=== PATIENT | female | born 1950 | race Caucasian/White ===

== ENCOUNTER 2025-07-23 16:52 | Inpatient (IN) | payer OTHER, SELFPAY ==
[2025-07-23] VITALS (8 sets, daily range): BP systolic 140–176; BP diastolic 55–77; BMI 28.7; BMI 28.6
--- NOTE | 2025-07-23 15:21 | ED.GENMED ---
History of Present Illness
<Jero Min PA-C - Last Filed: 07/23/25 16:22>
General
Chief Complaint: Fainting/Passed Out
Source: patient
Exam Limitations: none
Time Seen by Provider: 07/23/25 15:08
History of Present Illness
History of Present Illness:
75-year-old female presents via EMS from [facility] after syncopal episode. She states she had breakfast this morning. She was standing up to get lunch started to feel weak and lightheaded. She sat herself down but proceeded to pass out.
She sustained no injuries from passing out. She never been in this hospital before. She has a history of anemia. She does note that starting Friday evening she is been having dark stools. She has been taking ibuprofen daily for headaches. She
also has been taking aspirin intermittently. No other anticoagulants. She denies abdominal pain. With her workup for anemia in the past she has had endoscopies and colonoscopies as well as pill endoscopies without any sign of bleeding. She
denies chest pain. No headache currently. She notes overall she feels fatigued. No other complaints at this time
Phy Exam
<Jero Min PA-C - Last Filed: 07/23/25 16:22>
Physical Exam
Physical Exam:
General: Well-appearing female no acute respiratory distress
HEENT normal cephalic atraumatic
Heart: Regular rate and rhythm
Lungs: Clear no wheeze
Abdomen is soft nontender
Rectal exam: This was performed with female nurse as a technology applications teacher in the room. The stool was dark in color heme positive
Extremities: No cyanosis
Course
<Jero Min PA-C - Last Filed: 07/23/25 16:22>
Orders/Labs/Results
Orders:
Orders
07/23/25 15:15
EKG [Electrocardiogram (*1)] Urgent
Reason for Study: Syncope
07/23/25 15:16
EKG- Treatment ONCE
07/23/25 15:21
Pantoprazole [Protonix IV] 80 mg IV NOW STA
07/23/25 15:34
Type+Screen Urgent
CBC/With Diff [Complete Blood Count/With Diff] Urgent
Comprehensive Metabolic Panel Urgent
PTT Urgent
Prothrombin Time Urgent
07/23/25 15:36
Pantoprazole 80 mg/100 ml Nss [Protonix] 80 mg in 100 ml .ROUTE .STK-MED
07/23/25 15:58
Sterile Water [Sterile Water For Injection] 20 ml .ROUTE .STK-MED
07/23/25 16:13
* Blood Bank Products Urgent
Blood Bank Products: *Packed RBC Leuko(PRBC's)
Quantity: 2
Transfuse Today: Yes
Reason: Anemia
Abnormal Lab Results
07/23/25
15:34
WBC 14.1 H 10^3/uL
(4.8-10.8)
RBC 3.09 L 10^6/uL
(4.20-5.40)
Hgb 6.6 L* g/dL
(12.0-16.0)
Hct 22.6 L %
(37.0-47.0)
MCV 73.1 L fL
(81.0-99.0)
MCH 21.4 L pg
(27.0-31.0)
MCHC 29.2 L g/dL
(33.0-37.0)
RDW 16.0 H %
(11.5-14.5)
MPV 11.3 H fL
(7.4-10.4)
Abs Immat Gran (auto) 0.1 H 10^3/uL
(0-0.05)
Absolute Neuts (auto) 10.7 H 10^3/uL
(1.4-6.5)
Absolute Monos (auto) 0.8 H 10^3/uL
(0.1-0.6)
Immature Gran % 0.9 H %
(0-0.5)
Neutrophils % 76.3 H %
(42.2-75.2)
Lymphocytes % 15.1 L %
(20.5-51.1)
Potassium 3.0 L mmol/L
(3.5-5.1)
Glucose 107 H mg/dl
(70-99)
07/23/25 15:34
07/23/25 15:34
Vital Signs
Initial and Last Documented VS:
Initial Vital Signs
BP
140/55
07/23/25 15:11
Last Documented Vital Signs
Temp Pulse Resp BP Pulse Ox
97.8 F 72 21 156/61 96
07/23/25 15:43 07/23/25 16:00 07/23/25 16:00 07/23/25 16:00 07/23/25 16:00
<Lalita Li MD - Last Filed: 07/23/25 16:28>
Orders/Labs/Results
Orders:
Orders
07/23/25 15:15
EKG [Electrocardiogram (*1)] Urgent
Reason for Study: Syncope
07/23/25 15:16
EKG- Treatment ONCE
07/23/25 15:21
Pantoprazole [Protonix IV] 80 mg IV NOW STA
07/23/25 15:34
Type+Screen Urgent
CBC/With Diff [Complete Blood Count/With Diff] Urgent
Comprehensive Metabolic Panel Urgent
PTT Urgent
Prothrombin Time Urgent
07/23/25 15:36
Pantoprazole 80 mg/100 ml Nss [Protonix] 80 mg in 100 ml .ROUTE .STK-MED
07/23/25 15:58
Sterile Water [Sterile Water For Injection] 20 ml .ROUTE .STK-MED
07/23/25 16:13
* Blood Bank Products Urgent
Blood Bank Products: *Packed RBC Leuko(PRBC's)
Quantity: 2
Transfuse Today: Yes
Reason: Anemia
Abnormal Lab Results
07/23/25
15:34
WBC 14.1 H 10^3/uL
(4.8-10.8)
RBC 3.09 L 10^6/uL
(4.20-5.40)
Hgb 6.6 L* g/dL
(12.0-16.0)
Hct 22.6 L %
(37.0-47.0)
MCV 73.1 L fL
(81.0-99.0)
MCH 21.4 L pg
(27.0-31.0)
MCHC 29.2 L g/dL
(33.0-37.0)
RDW 16.0 H %
(11.5-14.5)
MPV 11.3 H fL
(7.4-10.4)
Abs Immat Gran (auto) 0.1 H 10^3/uL
(0-0.05)
Absolute Neuts (auto) 10.7 H 10^3/uL
(1.4-6.5)
Absolute Monos (auto) 0.8 H 10^3/uL
(0.1-0.6)
Immature Gran % 0.9 H %
(0-0.5)
Neutrophils % 76.3 H %
(42.2-75.2)
Lymphocytes % 15.1 L %
(20.5-51.1)
Potassium 3.0 L mmol/L
(3.5-5.1)
Glucose 107 H mg/dl
(70-99)
07/23/25 15:34
07/23/25 15:34
Vital Signs
Initial and Last Documented VS:
Initial Vital Signs
BP
140/55
07/23/25 15:11
Last Documented Vital Signs
Temp Pulse Resp BP Pulse Ox
97.8 F 72 21 156/61 96
07/23/25 15:43 07/23/25 16:00 07/23/25 16:00 07/23/25 16:00 07/23/25 16:00
<Jero Min PA-C - Last Filed: 07/23/25 16:22>
MDM/Problems Addressed
Differential Diagnosis Includes:
Syncope. History of anemia. She has dark-colored stools and is heme positive. Question possible symptomatic anemia versus arrhythmia versus vasovagal event. Check labs. EKG pending. Type and screen pending. Protonix ordered.
EKG demonstrates sinus rhythm with rate of 71 no ischemic changes
<Jero Min PA-C - Last Filed: 07/23/25 16:22>
*Pulse Oximetry
SaO2: 98
Patient hypoxic: no
*Critical Care Note
Total Time (30-74mins, 75-104mins- exclusive of procedures): Not Applicable
<Jero Min PA-C - Last Filed: 07/23/25 16:22>
Update Note
Update Note:
Hemoglobin 6.6. Vital signs remained stable but patient remains fatigued. She did have a syncopal episode today likely related to her anemia. Blood consent signed. Ordered 2 units of packed red blood cells.
ED Attending Note
<Jero Min PA-C - Last Filed: 07/23/25 16:22>
-
Portions of this chart may have been created with voice recognition software.� Occasional wrong word or��sound alike� substitutions may have occurred due to the inherent limitations of voice recognition software.
<Lalita Li MD - Last Filed: 07/23/25 16:28>
ED Attending Note
Patient seen and examined by attending physician: Yes
I performed the substantive portion of visit, reviewed & personally made and approve the management plan that is documented in note by myself or PHILIP.: Yes
ED Attending Note:
65-year-old female with a history of a syncopal event while attending a [facility] service today. She had a glass of wine, and was starting to sit down because she felt lightheaded when she had a short-lived syncopal event without incontinence or
postictal findings, witnessed by her daughter who is bedside, no tonic-clonic contractions. No tongue biting. Patient states she has been extremely tired particular for the last 2 weeks associated with mild intermittent shortness of breath. She
denies chest pain. Noted to be anemic here at 6.6 with heme positive stool. PPI administered, will transfuse with 2 units after consent signed, admission, close monitoring, GI consult. Abdomen soft nontender here heart regular rate and rhythm.
Discharge Plan
Departure
Patient Disposition: Admit
Date of Disposition: 07/23/25
Time of Disposition: 16:21
Presentation/result/management discussed w/ accepting MD/DO: Hospitalist
Discharge Problem:
Anemia, Syncope
Interventions
Interventions:
*Risk Screen - Suicide Last Done: 07/23/25 15:51
*General Assessment Last Done: 07/23/25 15:51
*Neglect/Abuse Screening Last Done: 07/23/25 15:51
*ED- Fall Risk Assessment Last Done: 07/23/25 15:51
*ED COVID-19 Vaccine History Last Done: 07/23/25 15:51
*ED Influenza Vaccine History Last Done: 07/23/25 15:51
ED- Cardiac Assessment Last Done: 07/23/25 15:50
ED- Neurological Assessment Last Done: 07/23/25 15:50
Discharge Date and Time
Print Language: MOROCCAN
[2025-07-23 15:57] LABS: ALT (SGPT) 13 U/L (0-35); AST (SGOT) 17 U/L (14-36); Albumin 3.8 g/dl (3.5-5.0); Alkaline Phosphatase 105 U/L (38-126); Blood Urea Nitrogen 15 mg/dl (7-17); Calcium 8.8 mg/dl (8.4-10.2); Carbon Dioxide 25 mmol/L (22-30); Chloride 105 mmol/L (98-107); Estimated Creatinine Clearance 69 ml/min; Glucose 107 mg/dl (70-99); Potassium 3.0 mmol/L (3.5-5.1); Sodium 138 mmol/L (135-145); Total Protein 6.4 g/dl (6.3-8.2); eGFR > 60.00
[2025-07-23 15:58] LABS: Hematocrit 22.6 % (37.0-47.0); Hemoglobin 6.6 g/dL (12.0-16.0); INR 1.10; Mean Corp Hgb Conc. 29.2 g/dL (33.0-37.0); Mean Corpuscular Volume 73.1 fL (81.0-99.0); Nucleated Red Blood Cells % 0 %; PT 14.5 Sec (11.4-14.6); Platelet Count 343 10^3/uL (130-400); Red Cell Dist. Width 16.0 % (11.5-14.5)
[2025-07-23 15:59] LABS: APTT 24.1 Sec (23.4-35.0)
[2025-07-23] MEDS: PROTONIX IV 80 MG IV (15:59)
--- NOTE | 2025-07-23 16:39 | HPS.HSE ---
Addendum entered and electronically signed by Skyler Zaldivar MD 07/23/25 16:46:
Continue baclofen for shoulder muscle spasms.
Patient's mother had nonbleeding gastric ulcers.
Original Note:
Family Physician
-
Family Physician:
Chief Complaint
-
syncope
History of Present Illness
75-year-old female past medical history of anemia, depression, hypertension, presenting with syncopal episode. She had her breakfast this morning and was standing up to get lunch and started to feel weak and lightheaded. She sat herself down but
proceeded to pass out. She denies any injuries from passing out. She has been having dark stools for the past week. She has been taking ibuprofen daily for headaches which she states started after she started Lexapro in May. She has been
taking aspirin intermittently. Denies abdominal pain. Denies chest pain. She has been feeling fatigued. Denies any diarrhea.
She has a history of anemia for which she had received blood transfusions in the past. 2 years ago she had endoscopy, colonoscopy and capsule endoscopy which did not show any source of GI bleeding. She sees Dr. Sesay at [place] as her GI
doctor.
She smokes less than a pack of cigarettes a day. Denies alcohol.
Medical History
Past Medical History
Past Medical History: Reports Other (anemia, depression, hypertension)
Past Surgical History: Reports Other (Breast cyst removal, appendectomy, cholecystectomy)
Social History
Tobacco: Smoker
Alcohol: None
Drug: None
Family History
Family History: Not pertinent
Allergies / Home Medications
Allergies reflects when Allergies were last updated in Personally.
Home Medications with original date entered in Personally
Allergy/Medication List:
Allergies
Allergy/AdvReac Type Severity Reaction Status Date / Time
Cephalosporins Allergy Severe Anaphylaxis Verified 07/23/25 15:47
influenza virus vaccine qs Allergy Severe Unknown Verified 07/23/25 15:47
[id number] (36 mos, up) (From
Fluarix Quad)
Penicillins Allergy Severe Anaphylaxis Verified 07/23/25 15:47
Sulfa (Sulfonamide Allergy Severe Anaphylaxis Verified 07/23/25 15:47
Antibiotics)
Tetracyclines Allergy Severe Anaphylaxis Verified 07/23/25 15:47
Review of Systems
-
History Source: Patient
A 12 point ROS was completed and negative except as noted: Yes
Constitutional: Reports No Symptoms
EENT: Reports No Symptoms
Respiratory: Reports No Symptoms
Cardiac: Reports No Symptoms
Abdomen/GI: Reports See HPI
: Reports No Symptoms
Musculoskeletal: Reports No Symptoms
Skin: Reports No Symptoms
Neurological: Reports No Symptoms
Endocrine: Reports No Symptoms
Hematologic/Lymphatic: Reports No Symptoms
Psych: Reports No Symptoms
Physical Exam
Vital Signs
Vital Signs
Temp Pulse Resp BP Pulse Ox
97.8 F 72 21 156/61 96
07/23/25 15:43 07/23/25 16:00 07/23/25 16:00 07/23/25 16:00 07/23/25 16:00
Physical Exam
General: Well Developed, Well Nourished and No Apparent Distress
HEENT: NormoCephalic, Moist mucous membranes and Atraumatic
Respiratory: Clear
Cardiac: S1/S2 and Regular Rhythm; No Murmur or Rub
GI: Soft, Non Tender, Non Distended and Normal Bowel Sounds; No Organomegaly
Rectal: Deferred by Provider
Musculoskeletal: No Clubbing, No Cyanosis and No Edema
Skin: No Rash
Neuro: Nonfocal/grossly intact
Laboratory Results
-
07/23/25 15:34
07/23/25 15:34
Laboratory Results
PT 14.5 Sec (11.4-14.6) 07/23/25 15:34
INR 1.10 07/23/25 15:34
APTT 24.1 Sec (23.4-35.0) 07/23/25 15:34
Total Bilirubin 0.4 mg/dl (0.2-1.3) 07/23/25 15:34
AST 17 U/L (14-36) 07/23/25 15:34
ALT 13 U/L (0-35) 07/23/25 15:34
Alkaline Phosphatase 105 U/L (38-126) 07/23/25 15:34
Data Reviewed
-
Lab Data: Labs Reviewed by me
Old Records: Reviewed
Impression/Plan
-
IMPRESSION:
PLAN:
# Syncopal episode secondary to acute blood loss anemia
# Acute on chronic blood loss microcytic anemia secondary to upper GI bleeding secondary to NSAIDs
-Rectal exam showed dark heme positive stool
- Hemoglobin 6.6
- 2 units blood
- Check iron studies, B12 and folate
- Protonix 40 twice daily
- Clear liquid diet, n.p.o. past midnight
- GI consulted
# Hypokalemia
- Replete potassium
Essential hypertension
- Continue lisinopril
Depression
- Continue Lexapro
Active smoker
- Nicotine patch
Full code
DVT prophylaxis�SCDs
N.p.o. past midnight
--- NOTE | 2025-07-23 17:26 | EDCM ---
CM reviewed chart and met with pt bedside in ED. Lives alone in 2 story home, 1 [address], has first floor bedroom and full bath, does not go upstairs.
Independent in ADLs, personal care ad ambulation at baseline. Has RW and cane, does not always use. Still drives.
Confirms prescription coverage.
No hx VN or SNF.
PCP: Danny Baldwin
Pharmacy: [facility]
Anticipate discharge home, CM will continue to follow for any discharge planning needs.
[2025-07-23] MEDS: KCL 40 MEQ PO (18:13)
--- NOTE | 2025-07-23 18:36 | PTCARENOTE ---
Received pt from ED via stretcher. Pt ambulated to bed with assist x1. AAOx3. Call archibald in close reach.
--- NOTE | 2025-07-23 18:48 | CON.GI ---
Consultation
-
Date/Time Consultation Requested: 07/23/2025, 6:45pm
Date/Time Consultation Performed: 07/23/2025, 6:45 pm
Requesting Provider: Dr. Zaldivar
Performing Provider: Dr. Bailey
Reason for Consultation: melena
Medical History
Chief Complaint / HPI
Chief Complaint: syncope
History of Present Illness:
75-year-old female past medical history of anemia of unclear etiology undergoing endoscopy, colonoscopy, capsule 2 years ago and [address] Sesay at [facility], follows with a business services associate as well found to have a hemoglobin of 7.5
on Friday with plans for IV iron. On she started having black stool about 1-2 a day. Then she had syncope today which made her come into the emergency room and she was found to have a hemoglobin of 6.6, BUN 15, white blood cell count
14.1. She was taking aspirin 325 and ibuprofen. She states that ibuprofen was only once a day for the last 4 days; otherwise ASA and ibuprofen intermittently. She does have some decreased appetite, denies any abdominal pain, nausea, vomiting,
dysphagia, weight loss.
Past Medical History
Past Medical History: HTN and Other (recurrent GAL no cause)
Past Surgical History: Appendectomy and Cholecystectomy
Social History
Tobacco: Smoker (1 ppd)
Alcohol: Occasional
Drug: None
Family History
Family History: Reviewed & Not Pertinent
Allergies / Home Medications
Allergy/AdvReac Type Severity Reaction Status Date / Time
Cephalosporins Allergy Severe Anaphylaxis Verified 07/23/25 15:47
influenza virus vaccine qs Allergy Severe Unknown Verified 07/23/25 15:47
[id number] (36 mos, up) (From
Fluarix Quad)
Penicillins Allergy Severe Anaphylaxis Verified 07/23/25 15:47
Sulfa (Sulfonamide Allergy Severe Anaphylaxis Verified 07/23/25 15:47
Antibiotics)
Tetracyclines Allergy Severe Anaphylaxis Verified 07/23/25 15:47
�Medication �Instructions �Recorded
baclofen 10 mg tablet 10 mg PO Q8HPRN PRN neck pain 07/23/25
diphenhydramine HCl 25 mg capsule 25 mg PO HS PRN allergies 07/23/25
(Benadryl)
escitalopram oxalate 10 mg tablet 10 mg PO HS 07/23/25
ferrous sulfate 325 mg (65 mg 325 mg PO HS 07/23/25
iron) tablet (FeroSul)
lansoprazole 15 mg capsule,delayed 15 mg PO DAILYPRN PRN reflux 07/23/25
release
lisinopril 20 mg tablet 20 mg PO HS 07/23/25
metoprolol succinate 25 mg 25 mg PO HS 07/23/25
tablet,extended release 24 hr
therapeutic multivitamin 1 tab PO HS 07/23/25
Review of Systems
-
All other systems: A 12 pt ROS was Negative except as stated above in HPI
Vital Signs
Temp Pulse Resp BP Pulse Ox
97.8 F 76 25 164/69 93
07/23/25 15:43 07/23/25 18:30 07/23/25 18:30 07/23/25 18:00 07/23/25 18:00
Physical Exam
Exam
General: Well Developed
HEENT: Normocephalic
Respiratory: Clear
Cardiac: S1/S2
GI: Non Tender and Non Distended
Musculoskeletal: No Clubbing
Neuro: AO x 3
Hematologic/Lymphatic: No Lymphadenopathy
Psych: Calm
Results
WBC 14.1 10^3/uL (4.8-10.8) H 07/23/25 15:34
Hgb 6.6 g/dL (12.0-16.0) L* 07/23/25 15:34
Hct 22.6 % (37.0-47.0) L 07/23/25 15:34
MCV 73.1 fL (81.0-99.0) L 07/23/25 15:34
Plt Count 343 10^3/uL (130-400) 07/23/25:34
Absolute Neuts (auto) 10.7 10^3/uL (1.4-6.5) H 07/23/25 15:34
PT 14.5 Sec (11.4-14.6) 07/23/25:
INR 1.10 07/23/25:
APTT 24.1 Sec (23.4-35.0) 07/23/25:34
Sodium 138 mmol/L (135-145) 07/23/25
Potassium 3.0 mmol/L (3.5-5.1) L 07/23/25:34
Chloride 105 mmol/L (98-107) 07/23/25:
Carbon Dioxide 25 mmol/L (22-30) 07/23/25:
BUN 15 mg/dl (7-17) 07/23/25:34
Creatinine 0.8 mg/dL (0.6-1.0) 07/23/25:34
Calcium 8.8 mg/dl (8.4-10.2) 07/23/25:34
Total Bilirubin 0.4 mg/dl (0.2-1.3) 07/23/25:34
AST 17 U/L (14-36) 07/23/25:
ALT 13 U/L (0-35) 07/23/25:34
Alkaline Phosphatase 105 U/L (38-126) 07/23/25:34
Diagnostic Image Results:
Prior GI Procedures:
EGD:
Colonoscopy:
Assessment / Plan
-
75-year-old female with recurrent anemia unclear etiology presenting with melena and drop in hemoglobin. Currently being transfused 2 units of blood. Taking aspirin 325 and ibuprofen. Suspicious for peptic ulcer disease however BUN is normal.
She also could have a Dieulofoy or AVM given her history of recurrent anemia with no clear etiology.
Plan for upper endoscopy tomorrow. We discussed the risk, benefits, and alternatives to upper endoscopy. The risks include bleeding, infection, perforation, missed lesion, and cardiopulmonary complications from anesthesia. The importance of
bringing an escort and remaining NPO after midnight was discussed.
In interim, recommend clear liquid diet, n.p.o. after midnight. Continue Protonix 40 twice daily. Trend hemoglobin with goal hemoglobin over 7.
If upper endoscopy is negative, she may benefit from push enteroscopy and colonoscopy on Friday given recurrent unexplained anemia and now with melena.
-
-
Thank you for consultation and allowing me to participate in the patient's care. Please call the ping pong table assembler GI physician during the after hours with any questions or concerns.
[2025-07-23 19:24] LABS: Iron 67 ug/dl (37-170)
[2025-07-23 19:33] LABS: Total Iron Binding Capacity 490 ug/dl (265-497)
[2025-07-23 20:02] LABS: Ferritin 6.5 ng/ml (11.1-264.0)
--- NOTE | 2025-07-23 20:30 | PTCARENOTE ---
Assumed care of patient from previous RN, patient upset following rounds that her blood has not been started as of yet. Patient states that she was informed when she arrived that her blood was up here on unit and waiting for her. Explained process
to patient, and that blood must be sent for and verified prior to being able to administer. During this time, patient's daughter also called to discuss delay in blood transfusion as she was under the impression she should have received blood
urgently while down in ED. Dayshift RN informed this RN that blood consent had not been on chart, ED noted that the scanner was not working and needed to obtain consent papers prior to being able to send for blood. Discussed process with patient,
she verbalized understanding. Awake and alert, oriented, no complaints at this time, VSS with BP being slightly elevated, no BP medications given at this time. Call archibald in reach, will monitor.
[2025-07-23 20:34] LABS: Folate 9.0 ng/ml (2.76-20); Vitamin B12 299 pg/ml (239-931)
--- NOTE | 2025-07-23 21:25 | PTCARENOTE ---
BPs elevated since admission to unit. Patient is concerned that her BPs are high, states her mother had issues with strokes from high BPs and that it is concerning her that she is not receiving her home regimen to control. REED WORKER Daron Ramos on unit and in
to speak with patient regarding BP control at this time, will order one time Lisinopril for tonight as it is noted in reports from today that Lisinopril can be restarted. Patient inquiring on Metoprolol as well, at this time REED WORKER holding off on
provided in order to keep BPs stable with low blood counts. Patient verbalized understanding. Will monitor.
[2025-07-23] MEDS: NSS (PRESERVATIVE FREE) 10 ML IV (21:26)
[2025-07-23] MEDS: PROTONIX IV 40 MG IV (21:26)
--- NOTE | 2025-07-23 21:30 | PTCARENOTE ---
Patient c/o right shoulder and arm pain that she states is extending into right side of neck. MICHELLE Ramos on unit at this time, in to assess patient at bedside. Patient states to LINE MAINTENANCE SUPERVISOR that she usually takes muscle relaxers at home, and that could be
contributing to her pain at this time. LINE MAINTENANCE SUPERVISOR ordered 1g Tylenol to be given to see if that aids in pain control. Will also order Baclofen PRN if needed. Will obtain Tylenol and provide. Will monitor.
[2025-07-23] MEDS: ZESTRIL 20 MG PO (21:57)
[2025-07-23] MEDS: TYLENOL 1000 MG PO (21:57)
[2025-07-24] VITALS (10 sets, daily range): BP systolic 113–186; BP diastolic 58–83
--- NOTE | 2025-07-24 03:45 | PTCARENOTE ---
2 units PRBCs infused, patient tolerated well with no interactions noted. BP remains elevated, will discuss with MICROSOFT BI DEVELOPER to see if further management is needed. Call archibald in reach, will monitor.
[2025-07-24 06:56] LABS: Hematocrit 26.5 % (37.0-47.0); Hemoglobin 8.3 g/dL (12.0-16.0); Mean Corp Hgb Conc. 31.3 g/dL (33.0-37.0); Mean Corpuscular Volume 76.6 fL (81.0-99.0); Nucleated Red Blood Cells % 0 %; Platelet Count 283 10^3/uL (130-400); Red Cell Dist. Width 16.7 % (11.5-14.5)
[2025-07-24 07:50] LABS: ALT (SGPT) 12 U/L (0-35); AST (SGOT) 19 U/L (14-36); Albumin 3.4 g/dl (3.5-5.0); Alkaline Phosphatase 110 U/L (38-126); Blood Urea Nitrogen 15 mg/dl (7-17); Calcium 8.5 mg/dl (8.4-10.2); Carbon Dioxide 27 mmol/L (22-30); Chloride 107 mmol/L (98-107); Estimated Creatinine Clearance 61 ml/min; Glucose 76 mg/dl (70-99); Potassium 3.3 mmol/L (3.5-5.1); Sodium 140 mmol/L (135-145); Total Protein 5.9 g/dl (6.3-8.2); eGFR > 60.00
--- NOTE | 2025-07-24 07:53 | W.PN.HOSP.TC ---
Today's Communication/Plan
-
blood pressure control
PT eval in AM Mon
monitor H&H, transfuse for goal Hgb>7.5
diet as per GI
Assessment / Plan
Assessment / Plan
Physical Exam
General: No acute distress, appears comfortable at this time.
HEENT: NormoCephalic, Moist mucous membranes, missing teeth noted
Respiratory: Clear
Cardiac: S1/S2 and Regular Rhythm; No Murmur or Rub
GI: Soft, Non Tender, Non Distended and Normal Bowel Sounds; No Organomegaly
Musculoskeletal: No Clubbing, No Cyanosis and No Edema
Skin: No Rash
Neuro: AOx3 conversant coherent
Psych: Calm
75F hx Anemia Depression HTN Tobacco here for syncope likely symptomatic anemia suspected GIB
# Syncopal episode secondary to acute blood loss anemia
# Acute on chronic blood loss microcytic anemia secondary to upper GI Angioectasia possibly exacerbated by NSAID use
- Rectal exam showed dark heme positive stool
- Hemoglobin 6.6 responded well to 2 units blood transfusion, post-transfusion Hgb 8.3
- iron studies appreciated deficiency, home iron supplement resumed
- Low B12 lvl, B12 supplement started
- Folate non-deficient
- Protonix 40 mg twice daily
- GI consult appreciated Two non-bleeding angioectasias duodenum chemically cauterized and clip placed
- diet advanced to clear liquid
- monitor H&H, transfuse for goal Hgb>7.5
- Possible push enteroscopy if patient's Hgb continues to drop
# Hypokalemia
- Monitor and replete as necessary
Essential hypertension
- Continue lisinopril 20 mg HS and Metoprolol XL 25 mg HS w/ holding parameters
Depression
- Continue Lexapro
Active smoker
- Nicotine patch
PT eval in AM Mon
Full code
DVT prophylaxis�SCDs
Discussed with patient and patient's daughter Villa
I spent a total of 45 minutes with the patient or on the floor. More than 50% of this time involved counseling and coordination of care.
Anticipated Discharge: Within 24 hours
Subjective/Interval History
-
Date of Service: July 24, 2025
No acute distress, appears well, sitting up comfortably in bed. Status post EGD, patient reports feeling well. Has concerns with regards to her blood pressure. Otherwise denies pain, tolerating diet. Daughter Villa present during evaluation.
Objective Data
-
Labs:
Laboratory Results
07/24/25
05:48
WBC 10.4
Hgb 8.3 L D
Hct 26.5 L
Plt Count 283
Sodium 140
Potassium 3.3 L
Chloride 107
Carbon Dioxide 27
BUN 15
Creatinine 0.9
Glucose 76
Calcium 8.5
Total Bilirubin 0.8
AST 19
ALT 12
Alkaline Phosphatase 110
Vital Signs:
Vital Signs
Temp Pulse Resp BP Pulse Ox
98.6 F 66 16 186/73 95
07/24/25 03:47 07/24/25 03:47 07/24/25 03:47 07/24/25 03:47 07/24/25 03:47
I&O
07/23/25 07/24/25 07/25/25
06:59 06:59 06:59
Intake Total 980 / 980
Balance 980 / 980
[2025-07-24 09:17] LABS: Hepatitis C Antibody Negative (Negative)
[2025-07-24] MEDS: NSS (PRESERVATIVE FREE) 10 ML IV ×2 (09:25→21:07)
[2025-07-24] MEDS: PROTONIX IV 40 MG IV ×2 (09:25→21:06)
[2025-07-24 12:57] LABS: Magnesium 1.9 mg/dl (1.6-2.3)
[2025-07-24] MEDS: KCL 40 MEQ PO (13:51)
[2025-07-24] MEDS: VITAMIN B-12 1000 MCG PO (18:09)
[2025-07-24] MEDS: TOPROL XL 25 MG PO (18:10)
[2025-07-24 18:54] LABS: Hematocrit 30.4 % (37.0-47.0); Hemoglobin 9.4 g/dL (12.0-16.0)
[2025-07-24] MEDS: ZESTRIL 20 MG PO (21:08)
[2025-07-24] MEDS: THERAGRAN 1 TABLET PO (21:13)
[2025-07-24] MEDS: LEXAPRO 10 MG PO (21:13)
[2025-07-24] MEDS: FEOSOL 325 MG PO (21:13)
[2025-07-25 03:00] VITALS: BP 181/76
[2025-07-25] MEDS: APRESOLINE 5 MG IV ×2 (03:06→10:02)
[2025-07-25 06:34] LABS: Hematocrit 27.4 % (37.0-47.0); Hemoglobin 8.6 g/dL (12.0-16.0); Mean Corp Hgb Conc. 31.4 g/dL (33.0-37.0); Mean Corpuscular Volume 76.5 fL (81.0-99.0); Platelet Count 273 10^3/uL (130-400); Red Cell Dist. Width 16.8 % (11.5-14.5)
[2025-07-25 06:36] VITALS: BP 176/84
[2025-07-25 07:00] VITALS: BP 177/79
[2025-07-25 07:27] LABS: Blood Urea Nitrogen 13 mg/dl (7-17); Calcium 8.9 mg/dl (8.4-10.2); Carbon Dioxide 27 mmol/L (22-30); Chloride 107 mmol/L (98-107); Estimated Creatinine Clearance 61 ml/min; Glucose 87 mg/dl (70-99); Magnesium 1.7 mg/dl (1.6-2.3); Potassium 3.7 mmol/L (3.5-5.1); Sodium 138 mmol/L (135-145); eGFR > 60.00
[2025-07-25] MEDS: VITAMIN B-12 1000 MCG PO (08:00)
[2025-07-25] MEDS: PROTONIX IV 40 MG IV (08:00)
[2025-07-25] MEDS: NSS (PRESERVATIVE FREE) 10 ML IV (08:00)
[2025-07-25] MEDS: LIORESAL 10 MG PO (09:41)
--- NOTE | 2025-07-25 10:40 | W.PN.GI.CBS2 ---
Addendum entered and electronically signed by Jake Bailey MD 07/25/25 15:48:
I saw and examined the patient.
The GARAGE MANAGER or PA's note was reviewed and I agree with the note.
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
suspect has additional avms in small bowel as cause of recurrent anemia.
now with green stool stable hb.
advance diet to regular.
recommend repeat CBC with outpatient hematology in 1 week.
Continue ppi daily
outpatient GI follow up locally
GI will sign off, ok GI POV for dc d/w primary team
pls call with ?s
Original Note:
Today's Communication / Plan
-
etiology of bleeding related to suspected AVM's vs other
s/p EGD with 2 no bleeding AVM with treatment
some drop in hbg and black stool overnight but no stools last 8 hours
will allow diet today then NPO in AM pending AM hbg and stool record
trend hbg will check at 2 pm then in AM
if continued drop consider repeat EGD with enteroscopy in AM
pt plan is to follow up with known hematology and GI in [place] where she lives
Assessment / Plan
-
75-year-old female with recurrent anemia unclear etiology presenting with melena and drop in hemoglobin. Currently being transfused 2 units of blood. Taking aspirin 325 and ibuprofen. Suspicious for peptic ulcer disease however BUN is normal.
She also could have a Dieulofoy or AVM given her history of recurrent anemia with no clear etiology.
07/24 EGD - Normal esophagus - Z-line irregular, 37 to 38 cm from the incisors. Biopsied. - 2 cm hiatal hernia.
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 Treated with
argon plasma coagulation (APC). Clip was placed No signs of bleeding seen. Bile seen.
Laboratory Tests
07/23/25 07/24/25 07/24/25
15:34 05:48 18:47
Hgb 6.6 L* 8.3 L D 9.4 L
07/25/25
06:27
Hgb 8.6 L
-anemia with hx iron deficiency
-melena
-syncope prior to admission
-EGD 07/24 with non bleeding angioectasia in duodenum s/p rx with APC
-hx prior GI work up EGD/colon/capsule 2 and 4 years ago with chronic hematology follow
other med problems:
-HTN
-depression
-tobacco abuse
PLAN:
etiology of bleeding related to suspected AVM's vs other
s/p EGD with 2 no bleeding AVM with treatment
some drop in hbg and black stool overnight but no stools last 8 hours
will allow diet today then NPO in AM pending AM hbg and stool record
trend hbg will check at 2 pm then in AM
if continued drop consider repeat EGD with enteroscopy in AM
pt plan is to follow up with known hematology and GI in [place] where she lives
Subjective
Subjective
Date of Service: July 25, 2025
on clear diet noted some black stools overnight per patient, no further syncope
Objective
Data Reviewed
Laboratory Data:
Laboratory Results
07/25/25 06:27
Laboratory Results
PT 14.5 Sec (11.4-14.6) 07/23/25 15:34
INR 1.10 07/23/25 15:34
APTT 24.1 Sec (23.4-35.0) 07/23/25 15:34
Phosphorus 3.4 mg/dl (2.5-4.5) 07/25/25 06:27
Magnesium 1.7 mg/dl (1.6-2.3) 07/25/25 06:27
Total Bilirubin 0.8 mg/dl (0.2-1.3) 07/24/25 05:48
AST 19 U/L (14-36) 07/24/25 05:48
ALT 12 U/L (0-35) 07/24/25 05:48
Alkaline Phosphatase 110 U/L (38-126) 07/24/25 05:48
Vital Signs and I&O:
Vital Signs
Temp Pulse Resp BP Pulse Ox
98.5 F 75 17 174/80 96
07/25/25 07:00 07/25/25 10:02 07/25/25 07:00 07/25/25 10:02 07/25/25 10:14
I&O
07/24/25 07/25/25 07/26/25
06:59 06:59 06:59
Intake Total 980 / 980 1200 / 1200
Balance 980 / 980 1200 / 1200
Physical Exam
Physical Exam
HEENT: Anicteric and Moist mucous membranes
Cardiology: Normal Sinus Rhythm
Pulmonary: Clear
GI: Soft, Non Distended and Non Tender
Extremities: No Edema
Neuro: Non Focal
[2025-07-25 11:00] VITALS: BP 177/75
[2025-07-25 12:43] VITALS: BP 188/86; PULSE 79
--- NOTE | 2025-07-25 12:47 | W.PN.HOSP.TC ---
Today's Communication/Plan
-
Assessment / Plan
Assessment / Plan
Physical Exam
General: No acute distress, appears comfortable at this time.
HEENT: NormoCephalic, Moist mucous membranes, missing teeth noted
Respiratory: Clear
Cardiac: S1/S2 and Regular Rhythm; No Murmur or Rub
GI: Soft, Non Tender, Non Distended and Normal Bowel Sounds; No Organomegaly
Musculoskeletal: No Clubbing, No Cyanosis and No Edema
Skin: No Rash
Neuro: AOx3 conversant coherent
Psych: Calm
75F hx Anemia Depression HTN Tobacco here for syncope likely symptomatic anemia suspected GIB
# Syncopal episode secondary to acute blood loss anemia
# Acute on chronic blood loss microcytic anemia secondary to upper GI Angioectasia possibly exacerbated by NSAID use
- Rectal exam showed dark heme positive stool
- Hemoglobin 6.6 responded well to 2 units blood transfusion, post-transfusion Hgb 9.4, dropped to 8.6 this morning
- iron studies appreciated deficiency, home iron supplement resumed
- Low B12 lvl, B12 supplement started
- Folate non-deficient
- Protonix 40 mg twice daily
- Status post EGD 07/24, Two non-bleeding angioectasias in the duodenum chemically cauterized and clip placed
- diet advanced to clear liquid for now
- monitor H&H, transfuse for goal Hgb>7.5
- Possible push enteroscopy if patient's Hgb continues to drop
# Hypokalemia
- Resolved, monitor
Essential hypertension
- Continue lisinopril 20 mg HS and Metoprolol XL 25 mg HS w/ holding parameters
- Remains hypertensive on above regimen, added amlodipine 5 mg daily
- Additional IV hydralazine as needed for SBP greater than 160
Depression
- Continue Lexapro
Active smoker
- Nicotine patch
Full code
DVT prophylaxis�SCDs
I spent a total of 47 minutes with the patient or on the floor. More than 50% of this time involved counseling and coordination of care.
Anticipated Discharge: 24 - 48 hours
Subjective/Interval History
-
Date of Service: July 25, 2025
Patient was seen and examined at bedside this morning. No pain or discomfort after EGD with cauterization of duodenal angioectasias. Hemoglobin dropped to 8.6 on labs this morning.
Objective Data
-
Labs:
Laboratory Results
07/25/25 07/25/25
06:27 14:00
WBC 10.7
Hgb 8.6 L Pending
Hct 27.4 L
Plt Count 273
Sodium 138
Potassium 3.7
Chloride 107
Carbon Dioxide 27
BUN 13
Creatinine 0.9
Glucose 87
Calcium 8.9
Vital Signs:
Vital Signs
Temp Pulse Resp BP Pulse Ox
97.8 F 74 18 177/75 98
07/25/25 11:00 07/25/25 11:00 07/25/25 11:00 07/25/25 11:00 07/25/25 11:00
I&O
07/24/25 07/25/25 07/26/25
06:59 06:59 06:59
Intake Total 980 / 980 1200 / 1200
Balance 980 / 980 1200 / 1200
Review of Systems
-
History Source: Patient
All other systems: Reviewed and negative
Physical Exam
-
General: No Apparent Distress
--- NOTE | 2025-07-25 12:50 | PTOTSP ---
The patient was able to ambulate and perform a step-up independently, offering no concerns regarding her mobility upon return home. No acute PT needs at this time, will sign off.
[2025-07-25] MEDS: NORVASC 5 MG PO (13:14)
[2025-07-25] MEDS: TYLENOL 650 MG PO (13:14)
[2025-07-25 14:29] LABS: Hemoglobin 9.7 g/dL (12.0-16.0)
[2025-07-25 15:00] VITALS: BP 153/64
--- NOTE | 2025-07-25 16:21 | W.DCSUMMARY ---
Discharge Summary
Discharge Data
Date of Admission: 07/23/25
Date of Discharge: 07/25/25
Total time spent discharging patient (in min): 40
-
Pending Results: No
Hospital Course
Ms. Cr is a 75-year-old female with a medical history of anemia, hypertension, and depression who presented following multiple syncopal episodes. She has been having dark-colored stools for approximately 1 week prior to arrival. She has been
taking ibuprofen daily for headaches and aspirin intermittently. She had not been experiencing any abdominal pain. She has had blood transfusions in the past. She underwent upper and lower endoscopy and capsule endoscopy 2 years ago with no
identifiable sources of GI bleeding. At the time of this admission, initial labs showed a hemoglobin of 6.6. She was transfused 2 units PRBCs following which her hemoglobin improved to 9.4. She underwent upper endoscopy on 07/24 which identified 2
duodenal angioectasias treated with argon plasma coagulation and clip. Her hemoglobin remained stable post endoscopy. She will need to continue pantoprazole once daily for acid suppression. She will need repeat blood work in 1 week to monitor her
hemoglobin levels. She will also need outpatient gastroenterology and hematology follow-up. She was started on amlodipine 5 mg daily for better blood pressure control. She will need to follow-up with her primary care physician for ongoing blood
pressure monitoring and adjustments to her medication regimen as needed.
Discharge Plan
-
Patient Disposition: Home (Routine Discharge)
Discharge Diagnosis/Procedures: Symptomatic anemia secondary to bleeding upper GI angioectasias exacerbated by NSAID use
Activity Restrictions/Additional Instructions:
Ms. Cr is a 75-year-old female with a medical history of anemia, hypertension, and depression who presented following multiple syncopal episodes. She has been having dark-colored stools for approximately 1 week prior to arrival. She has been
taking ibuprofen daily for headaches and aspirin intermittently. She had not been experiencing any abdominal pain. She has had blood transfusions in the past. She underwent upper and lower endoscopy and capsule endoscopy 2 years ago with no
identifiable sources of GI bleeding. At the time of this admission, initial labs showed a hemoglobin of 6.6. She was transfused 2 units PRBCs following which her hemoglobin improved to 9.4. She underwent upper endoscopy on 07/24 which identified 2
duodenal angioectasias treated with argon plasma coagulation and clip. Her hemoglobin remained stable post endoscopy. She will need to continue pantoprazole once daily for acid suppression. She will need repeat blood work in 1 week to monitor her
hemoglobin levels. She will also need outpatient gastroenterology and hematology follow-up. She was started on amlodipine 5 mg daily for better blood pressure control. She will need to follow-up with her primary care physician for ongoing blood
pressure monitoring and adjustments to her medication regimen as needed.
Referrals:
Rosaline Baldwin DO [Family Provider, Family Practice]
Jake Bailey MD [Active, Gastroenterology]
Prescriptions:
New
nicotine 14 mg/24 hr Patch 24 Hour
14 mg transdermal DAILY 30 Days Qty: 30 0RF
amlodipine 5 mg Tablet
5 mg PO DAILY 30 Days Qty: 30 0RF
pantoprazole 40 mg Tablet,Delayed Release (Dr/Ec)
40 mg PO DAILY 30 Days Qty: 30 0RF
Continued
lisinopril 20 mg tablet
20 mg PO HS
therapeutic multivitamin Tablet
1 tab PO HS
baclofen 10 mg tablet
10 mg PO Q8HPRN PRN (Reason: neck pain)
diphenhydramine HCl [Benadryl] 25 mg Capsule
25 mg PO HS PRN (Reason: allergies)
ferrous sulfate [FeroSul] 325 mg (65 mg iron) tablet
325 mg PO HS
metoprolol succinate 25 mg tablet extended release 24 hr
25 mg PO HS
escitalopram oxalate 10 mg tablet
10 mg PO HS
Discontinued
lansoprazole [Prevacid] 15 mg Capsule,Delayed Release(Dr/Ec)
15 mg PO DAILYPRN PRN (Reason: reflux)
Discharge Orders:
Discharge Patient (As Directed); Ordered 07/25/25
Ordered By: Danny Williamson
Discharge Date and Time
Print Language: COMORAN
--- NOTE | 2025-07-25 16:38 | CM ---
Pt cleared for discharge to home today; no needs identified.
IMM provided and copy placed in chart.
Worklist completed.
== END 2025-07-25 17:41 | disposition home or self-care (01) | DRG 378 ==
LOC: 3 WEST ACU 16:52
PROVIDERS: Internal Medicine; Physician Assistant; ADMITTING PHYSICIAN Hospitalist; ATTENDING PHYSICIAN Internal Medicine; CONSULT PHYSICIAN Internal Medicine Gastroenterology; EMERGENCY PHYSICIAN Emergency Medicine; FAMILY PHYSICIAN Family Medicine
PROC: 30233N1 Transfusion of Nonautologous Red Blood Cells into Peripheral Vein, Percutaneous Approach (ICD-10-PCS; 2025-07-23)
PROC: 0W3P8ZZ Control Bleeding in Gastrointestinal Tract, Via Natural or Artificial Opening Endoscopic (ICD-10-PCS; 2025-07-24)
PROC: 0DB58ZX Excision of Esophagus, Via Natural or Artificial Opening Endoscopic, Diagnostic (ICD-10-PCS; 2025-07-24)
DX: K92.2 Gastrointestinal hemorrhage, unspecified (principal); D62 Acute posthemorrhagic anemia; D68.32 Hemorrhagic disorder due to extrinsic circulating anticoagulants; M62.838 Other muscle spasm; F17.210 Nicotine dependence, cigarettes, uncomplicated; T39.395A Adverse effect of other nonsteroidal anti-inflammatory drugs [NSAID], initial encounter; R55 Syncope and collapse; E87.6 Hypokalemia; I10 Essential (primary) hypertension; F32.A Depression, unspecified; K44.9 Diaphragmatic hernia without obstruction or gangrene; K31.7 Polyp of stomach and duodenum; K22.89 Other specified disease of esophagus
CPT/HCPCS: 80048; 80053; 82607; 82728; 82746; 83540; 83550; 83735; 84100; 85014; 85018; 85025; 85027; 85610; 85730; 86803; 86850; 86900; 86901; 86920; 88305; 93005; 96374; 97161; 99285; 99406; P9016